=== PATIENT | female | born 1985 | race Two or more races ===

== ENCOUNTER 2020-05-11 01:08 | Emergency (ER) | payer SELFPAY ==
[~2020-05-11] VITALS: Ht 165.1 cm; Wt 69.0 kg
[2020-05-11 03:46] VITALS: BP 136/95
== END 2020-05-11 03:48 | disposition home or self-care (01) ==
LOC: ER 01:08
DX: F32.9 Major depressive disorder, single episode, unspecified (principal); Z88.0 Allergy status to penicillin
CPT/HCPCS: 99283